=== PATIENT | male | born 1955 | race Caucasian/White ===

== ENCOUNTER 2017-02-22 12:57 | Emergency (ER) | payer MEDICAID ==
--- NOTE | 2017-02-22 13:36 | C.PDOC ---
History Of Present Illness 62 yr old male presents to the ER s/p trip and fall today. Patient reports of small laceration to the left cheek. Patient denies alcohol use, LOC, nausea, vomiting, headache, weakness or numbness. Patient normally walks with a cane. 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 Gastrointestinal: Negative for: Nausea, Vomiting Skin: Positive for: Other ((+) Laceration to the left cheek) Neurological: Negative for: Weakness, Numbness, Headache Physical Exam - Physical Exam Appears: Non-toxic, No Acute Distress Skin: Warm, Dry, No Rash, Other ((+) 3 cm triangular laceration to the left cheek. Aggregate. Does not invade the muscle area.) Head: Atraumatic, Normacephalic Oral Mucosa: Moist Tongue: Normal Appearing Lips: Normal Appearing Gingiva: Normal Appearing Respiratory: Normal Breath Sounds, No Rales, No Rhonchi, No Stridor, No Wheezing Neurological/Psych: Oriented x3, Normal Speech, Normal Motor Laceration - Laceration Repair Left Cheek Wound Length (In cm): 3 Description Of Wound: Irregular Wound Cleansed With: Sterile Saline Wound Examination: Irrigated With Saline, No FB With Wound Exploration Wound Closure: Steri Strips, Skin Glue Wound Complexity: Simple Medical Decision Making Medical Decision Making: PLAN: * Tetanus IM 3 cm aggregate angulated skin tear/lac, now cleaned and repaired with dermabond/ Steri strips for excellent cosmetic effect Well tolerated no CT's indicated. Disposition Doctor Will See Patient In The: Office Counseled Patient/Family Regarding: Studies Performed, Diagnosis - Disposition Referrals: Brett Benoit Jr., MD [Staff Provider] - Disposition: HOME/ ROUTINE Disposition Time: 13:36 Condition: GOOD Additional Instructions: skin adhesive and steristrips will fall off naturally in about 5 days TdaP applied today Follow-up with Dr. Benoit for wound check in 2 days. Instructions: Skin Adhesive Care (ED), Steristrips (ED), Facial Laceration (ED) Forms: [employer] (Albanian) - Clinical Impression Clinical Impression: Facial laceration - Scribe Statement The provider has reviewed the documentation as recorded by the Louieibe Corina Hoff Provider Attestation: All medical record entries made by the Louieibe were at my direction and personally dictated by me. I have reviewed the chart and agree that the record accurately reflects my personal performance of the history, physical exam, medical decision making, and the department course for this patient. I have also personally directed, reviewed, and agree with the discharge instructions and disposition.
[2017-02-22 13:46] VITALS: O2SAT 99
[2017-02-22 13:51] VITALS: BP 112/74; PULSE 100; RESP 18; TEMP 98.2
== END 2017-02-22 14:00 | disposition home or self-care (01) ==
LOC: C.ER 12:57
DX: S01.412A Laceration without foreign body of left cheek and temporomandibular area, initial encounter (principal); W01.0XXA Fall on same level from slipping, tripping and stumbling without subsequent striking against object, initial encounter; Z23 Encounter for immunization

== ENCOUNTER 2017-06-24 12:48 | Emergency (ER) | payer MEDICAID ==
[2017-06-24 13:58] LABS: BASO % 0.3 % (0.0-2.0); EOS # 0.1 K/uL (0.0-0.7); EOS % 0.7 % (0.0-4.0); HEMOGLOBIN 13.9 g/dL (12.0-18.0); LYMPH # 0.7 K/uL (1.0-4.3); LYMPH % 8.8 % (20.0-40.0); MEAN CELL VOLUME 89.8 fL (80.0-94.0); MEAN CORPUSCULAR HEMOGLOBIN 29.7 pg (27.0-31.0); MEAN CORPUSCULAR HGB CONC 33.1 g/dL (33.0-37.0); MEAN PLATELET VOLUME 9.1 fL (7.2-11.7); MONO # 0.5 K/uL (0.0-0.8); MONO % 6.2 % (0.0-10.0); NEUT # 6.8 K/uL (1.8-7.0); NRBC % 0.1 % (0.0-2.0); PLATELET COUNT 206 K/uL (130-400); RBC 4.69 Mil/uL (4.40-5.90); RED CELL DISTRIBUTION WIDTH 13.6 % (11.5-14.5); WHITE BLOOD COUNT 8.1 K/uL (4.8-10.8)
[2017-06-24 14:05] LABS: PROTHROMBIN TIME 11.8 SECONDS (9.7-12.2)
--- NOTE | 2017-06-24 14:09 | RAD ---
PROCEDURE: CHEST RADIOGRAPH, 1 VIEW HISTORY: Shortness of breath COMPARISON: None available. FINDINGS: LUNGS: The lungs are well inflated and clear. PLEURA: No pneumothorax or pleural fluid seen. CARDIOVASCULAR: Normal. OSSEOUS STRUCTURES: No significant abnormalities. VISUALIZED UPPER ABDOMEN: Normal. OTHER FINDINGS: None. IMPRESSION: No active pulmonary disease.
--- NOTE | 2017-06-24 14:20 | CT ---
PROCEDURE: CT HEAD WITHOUT CONTRAST. HISTORY: Fall, right frontal injury COMPARISON: None available. TECHNIQUE: Axial computed tomography images were obtained through the head/brain without intravenous contrast. Radiation dose: Total exam DLP = 951.74 mGy-cm. This CT exam was performed using one or more of the following dose reduction techniques: Automated exposure control, adjustment of the mA and/or kV according to patient size, and/or use of iterative reconstruction technique. FINDINGS: HEMORRHAGE: No intracranial hemorrhage. BRAIN: There are mild chronic microangiopathic changes. There is no mass, mass effect or abnormal extra-axial fluid collection.There are coarse atherosclerotic calcifications in the cavernous carotid arteries. VENTRICLES: There is moderate age-related global parenchymal volume loss and proportionate enlargement of the ventricles and cortical sulci. CALVARIUM: There is no calvarial fracture. There is a moderate size right frontal scalp hematoma. PARANASAL SINUSES: Predominantly clear. MASTOID AIR CELLS: Predominantly clear. OTHER FINDINGS: None. IMPRESSION: No acute intracranial abnormality. Moderate sized right frontal scalp hematoma. Mild chronic microangiopathic changes and moderate age-related global parenchymal volume loss.
[2017-06-24 14:23] LABS: LYMPHOCYTE 8 % (20-40); MONOCYTE 4 % (0-10); NEUTROPHIL 88 % (50-75); TOTAL CELLS COUNTED 100
[2017-06-24 14:24] LABS: PLATELET ESTIMATE NORMAL (NORMAL)
[2017-06-24 14:56] LABS: ALB/GLOB RATIO 1.3 (1.0-2.1); ALBUMIN 4.2 g/dL (3.5-5.0); ALT/SGPT 34 U/L (21-72); AST/SGOT 34 U/L (17-59); BLOOD UREA NITROGEN 11 mg/dL (9-20); CALCIUM 8.9 mg/dl (8.6-10.4); GFR AFRICAN-AMERICAN > 60; GFR NON-AFRICAN AMERICAN > 60
--- NOTE | 2017-06-24 15:07 | C.PDOC ---
History Of Present Illness 62 year old male presents to the ED for evaluation after he sustained a fall earlier today. Patient states he was walking when he accidentally tripped, fell and struck the right side of his forehead. Patient was evaluated for similar trip and fall in February 2017 and had a normal workup. Patient denies LOC, dizziness, vision change, nausea, vomiting. - HPI Time Seen by Provider: 06/24/17 13:19 Chief Complaint (Nursing): Trauma History Per: Patient History/Exam Limitations: no limitations Onset/Duration Of Symptoms: Hrs Injury Occurred (Timing): Just Before Arrival Location Of Injury: Right: Head (forehead ) Additional History Per: Patient Past Medical History Reviewed: Historical Data, Nursing Documentation, Vital Signs Vital Signs: Last Vital Signs Temp 97.4 F L 06/24/17 19:16 Pulse 81 06/24/17 19:16 Resp 13 06/24/17 19:16 BP 122/75 06/24/17 19:16 Pulse Ox 100 06/24/17 23:03 - Medical History PMH: No Chronic Diseases Surgical History: No Surg Hx Family History: States: Unknown Family Hx - Social History Hx Alcohol Use: No Hx Substance Use: No - Immunization History Hx Tetanus Toxoid Vaccination: No Hx Influenza Vaccination: No Review Of Systems Eyes: Negative for: Vision Change Gastrointestinal: Negative for: Nausea, Vomiting Skin: Positive for: Other (struck right forehead during fall ) Neurological: Negative for: Dizziness, Other (LOC ) Physical Exam - Physical Exam Appears: Non-toxic, No Acute Distress Skin: Normal Color, Warm, Dry Head: No Laceration, Other (5x5cm area of contusion and abrasion to right forehead ) Eye(s): bilateral: Other (poor eye contact ) Ear(s): Bilateral: Normal Nose: Normal, No Deformity, No Septal Hematoma Oral Mucosa: Moist Neck: Normal ROM, Supple Chest: Symmetrical, No Deformity, No Tenderness Cardiovascular: Rhythm Regular, No Murmur Respiratory: Normal Breath Sounds, No Rales, No Rhonchi, No Wheezing Extremity: Normal ROM, Capillary Refill (less than 2 seconds ) Neurological/Psych: Other (awake, alert and oriented. appears dazed and confused ) ED Course And Treatment - Laboratory Results Result Diagrams: 06/24/17 13:51 06/24/17 14:31 Lab Interpretation: Normal (trop neg) ECG: Interpreted By Me ECG Rhythm: Sinus Rhythm ECG Interpretation: Normal Rate From EC O2 Sat by Pulse Oximetry: 100 (on RA) Pulse Ox Interpretation: Normal - Radiology CXR: Interpreted by Me CXR Interpretation: Yes: No Acute Disease - CT Scan/US head CT Other Rad Studies (CT/US): Radiology Report Reviewed (+STS R frontal, no brain injury) Progress Note: Bloodwork, urinalysis, CT Head, CXR, EKG ordered and reviewed. wound cleaned and bandaged. neuro back to baseline Reevaluation Time: 15:05 Reassessment Condition: Improved - Physician Consult Information Outcome Of Conversation: [id number]: multiple failed attempts to contact PMD Dr. Benoit-. pt will be transported with [employer], pt has his own house keys, and lives with the Super of the [facility] who is expecting him home shortly. Stable gait (w cane) @ d/c. Medical Decision Making Medical Decision Making: gait apraxia, stable accidental trip and fall + R frontal contusion, no brain injury Disposition Doctor Will See Patient In The: Office Counseled Patient/Family Regarding: Studies Performed, Diagnosis - Disposition Referrals: Brett Benoit Jr., MD [Staff Provider] - Disposition: HOME/ ROUTINE Disposition Time: 15:07 Condition: GOOD Additional Instructions: continue ice packs to the forehead as needed 1/2 hour per hour- helps with pain and swelling Tylenol 1000 mg every 6 hours as needed for pain/headache. Labs and head CT normal today. Instructions: Contusion (DC), Minor Head Injury (DC) Forms: [employer] (Chilean) - Clinical Impression Clinical Impression: Fall from slip, trip, or stumble, Facial contusion - Scribe Statement The provider has reviewed the documentation as recorded by the Scribe (Violeta Valdovinos) Provider Attestation: All medical record entries made by the Scribe were at my direction and personally dictated by me. I have reviewed the chart and agree that the record accurately reflects my personal performance of the history, physical exam, medical decision making, and the department course for this patient. I have also personally directed, reviewed, and agree with the discharge instructions and disposition.
[2017-06-24 19:16] VITALS: BP 122/75; PULSE 81; RESP 13; TEMP 97.4
[2017-06-24 23:03] VITALS: O2SAT 100
--- NOTE | 2017-06-25 23:27 | CARD ---
APPROVED REPORT EKG Measurement Heart [id number] <Conclusion> Normal sinus rhythm Low voltage QRS Borderline ECG
== END 2017-06-24 19:48 | disposition home or self-care (01) ==
LOC: C.ER 12:48
DX: S00.83XA Contusion of other part of head, initial encounter (principal); W01.0XXA Fall on same level from slipping, tripping and stumbling without subsequent striking against object, initial encounter; Y93.01 Activity, walking, marching and hiking; Y92.410 Unspecified street and highway as the place of occurrence of the external cause